=== PATIENT | female | born 1985 | race Two or more races ===

== ENCOUNTER 2025-07-19 22:41 | Emergency (ER) | payer MEDICAID ==
[~2025-07-19] VITALS: Ht 167.6 cm; Wt 66.0 kg
[2025-07-19 22:45] VITALS: O2SAT 100
[2025-07-19] MEDS: ONDANSETRON 4MG ODT PO ONE (23:28)
[2025-07-19] MEDS: ACETAMINOPHEN 325MG TABLET PO ONE (23:29)
[2025-07-19] MEDS: IBUPROFEN 600MG TABLET PO ONE (23:29)
[2025-07-19 23:39] LABS: BASOPHILS % 1.0 % (0.0-2.0); EOSINOPHILS % 2.2 % (0.0-5.0); HEMATOCRIT. 36.1 % (36.0-48.0); HEMOGLOBIN. 11.1 g/dL (12.0-16.0); LYMPHOCYTES % 37.7 % (20.0-50.0); MEAN PLATELET VOLUME 7.9 fl (7.4-10.4); MONOCYTES % 3.7 % (2.0-8.0); NEUTROPHILS % 55.4 % (40.0-76.0); PLATELET 291 x1000/uL (130-400); RED BLOOD CELL COUNT 5.04 mill/uL (4.2-5.4); RED CELL DISTRIBUTION WIDTH 16.9 % (11.6-14.6)
[2025-07-19 23:44] LABS: INR 0.9
[2025-07-19 23:56] LABS: CREATININE 0.7 mg/dL (0.6-1.0); UREA NITROGEN BLOOD 11 mg/dL (9-23)
[2025-07-19 23:57] LABS: ETHANOL BLOOD < 10 mg/dL (<10)
[2025-07-19 23:58] LABS: ASPARTATE AMINOTRANSFERASE 11 IU/L (<34); BILIRUBIN DIRECT < 0.1 mg/dL (<=3.0); BILIRUBIN TOTAL 0.4 mg/dL (0.1-1.0)
[2025-07-19 23:59] LABS: PROTEIN TOTAL 7.5 g/dL (6.0-8.3)
[2025-07-20 00:29] LABS: HCG SCREEN NEGATIVE
[2025-07-20 01:25] LABS: CLARITY URINE CLOUDY (CLEAR); COLOR URINE YELLOW (YELLOW); GLUCOSE URINE NEGATIVE (NEGATIVE); KETONES URINE NEGATIVE (NEGATIVE); LEUKOCYTE ESTERASE URINE 2+ (NEGATIVE); NITRITE URINE NEGATIVE (NEGATIVE); OCCULT BLOOD URINE NEGATIVE (NEGATIVE); PH URINE 5.5 (4.5-8.0); PROTEIN URINE NEGATIVE (NEGATIVE); SPECIFIC GRAVITY URINE 1.017 (1.005-1.030); UROBILINOGEN URINE 1.0 E.U./dL (0.2-1.0)
[2025-07-20] MEDS: HYDROCODONE/ACETAMINOPHEN 10/325MG TABLET PO NR (01:28)
[2025-07-20] MEDS ORDERED: ONDA-239 PO (01:30)
[2025-07-20] MEDS ORDERED: IBUP-2030 MT (01:30)
[2025-07-20] MEDS ORDERED: CEPH500T MT (01:30)
[2025-07-20 01:42] VITALS: BP 106/71; PULSE 90; RESP 18; TEMP 36.6; O2SAT 100
[2025-07-20] MEDS: CEPHALEXIN 250MG CAPSULE PO NR (01:44)
[2025-07-20 02:10] LABS: *AMPHETAMINES SCREEN URINE PRESUMPTIVE POSITIVE (NEGATIVE); *BENZODIAZEPINES SCREEN URINE NEGATIVE (NEGATIVE)
[2025-07-20 02:11] LABS: *BARBITURATES SCREEN URINE NEGATIVE (NEGATIVE); *COCAINE SCREEN URINE NEGATIVE (NEGATIVE); CANNABINOID URINE SCREEN PRESUMPTIVE POSITIVE (NEGATIVE); ECSTASY MDMA SCREEN URINE CONF.TEST INDICATED (NEGATIVE); METHADONE URINE SCREEN NEGATIVE (NEGATIVE); OPIATES URINE SCREEN NEGATIVE (NEGATIVE); PHENCYCLIDINE URINE SCREEN NEGATIVE (NEGATIVE)
[2025-07-20 05:48] LABS: SQUAMOUS EPITHELIAL CELL URINE 1+ /lpf (RARE/1+)
[2025-07-20 05:53] LABS: BACTERIA URINE 1+
== END 2025-07-20 01:47 | disposition home or self-care (01) ==
LOC: ER 22:41
DX: K52.9 Noninfective gastroenteritis and colitis, unspecified (principal); G43.909 Migraine, unspecified, not intractable, without status migrainosus; Z79.899 Other long term (current) drug therapy
CPT/HCPCS: 80076; 80048; 81025; 80320; 84703; 83880; 83690; 85025; 85610; 36415; 74176; 99284; 80305; 81003; Q0162; G0480